=== PATIENT | male | born 1980 | race African-American/Black ===

== ENCOUNTER 2017-07-30 13:12 | Emergency (ER) | payer OTHER ==
[2017-07-30 13:37] VITALS: BP 121/71; PULSE 66; TEMP 98; BMI 27.4
--- NOTE | 2017-07-30 14:06 | PDOC ---
History of Present Illness - General Chief Complaint: Pain, Acute Stated Complaint: CHEST PAIN Time Seen by Provider: 07/30/17 13:55 History Source: Patient Exam Limitations: No Limitations - History of Present Illness Initial Comments: 07/30/17 14:31 Her with complaints of 4 days of left shoulder, upper back and neck spasm/pain. Is uncertain as to cause of issue. Denies recent exercise change, does not attend gym, denies any trauma or every heavy lifting. Uncertain as to may be slept in the wrong way. 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 Denies any heavy lifting at work or any injury. Has taken ibuprofen with minimal resolved, has had a friend massage neck with minimal resolved. Denies numbness or tingling to hands or feet, denies any chest pain or palpitations, no shortness of breath or dizziness. No fevers or cough. Smokes cigarettes, denies alcohol or drug use Timing/Duration: unsure Severity: mild, moderate Modifying Factors: improves with: medication Associated Symptoms: denies: denies symptoms Past History - Travel Traveled outside of the country in the last 30 days: No Close contact w/someone who was outside of country & ill: No - Past Medical History Allergies/Adverse Reactions: Allergies Allergy/AdvReac Type Severity Reaction Status Date / Time No Known Allergies Allergy Verified 07/30/17 13:34 Home Medications: Ambulatory Orders Cyclobenzaprine HCl [Flexeril 10 mg] 10 mg PO BID PRN #14 tablet 07/30/17 COPD: No Other medical history: eczema, nerve damage - Suicide/Smoking/Psychosocial Hx Smoking History: Current every day smoker Number of Cigarettes Smoked Daily: 10 Information on smoking cessation initiated: No Review of Systems - Review of Systems Able to Perform ROS?: Yes Is the patient limited Setswana proficient: Yes Constitutional: Yes: Symptoms Reported, See HPI, Malaise Respiratory: Yes: See HPI, Cough. No: Symptoms reported Musculoskeletal: Yes: Symptoms Reported, See HPI, Back Pain, Muscle Pain, Muscle Weakness Integumentary: Yes: Symptoms Reported, See HPI. No: Bruising All Other Systems: Reviewed and Negative *Physical Exam - Vital Signs Last Vital Signs Temp Pulse Resp BP Pulse Ox 98 F 66 18 121/71 98 07/30/17 13:34 07/30/17 13:34 07/30/17 13:34 07/30/17 13:34 07/30/17 13:34 - Physical Exam General Appearance: Yes: Appropriately Dressed, Apparent Distress HEENT: positive: PARESH, TMs Normal Neck: positive: Tender, Supple, Other (tender and tense musculature of the paravertebral spinous muscles of left side of neck extending to occiput and to insertion at upper trapezius. Range of motion is limited to left and turning movement of head. Able to abduct arm actively to approximately 45 but passive range of motion is 100% with forward flexion also passive normal. Has no crepitus or step-offs along scapular or apical. Has strong flexion and extension to upper and lower arm strong grasp to left hand. Pushing against resistance reproduces pain to his shoulder muscles.). negative: Lymphadenopathy (R), Lymphadenopathy (L) Respiratory/Chest: positive: Lungs Clear, Normal Breath Sounds. negative: Stridor, Wheezing Cardiovascular: positive: Regular Rhythm Gastrointestinal/Abdominal: positive: Normal Bowel Sounds, Soft. negative: Tender Musculoskeletal: positive: Normal Inspection, Muscle Spasm. negative: CVA Tenderness, Vertebral Tenderness Extremity: positive: Normal Capillary Refill, Normal Inspection Integumentary: positive: Normal Color. negative: Pale, Rash Neurologic: positive: field superintendent II-XII NML intact, Fully Oriented, Alert, Normal Mood/ Affect, Normal Response, Motor Strength 5/5 Medical Decision Making - Medical Decision Making 07/30/17 14:35 Cervical strain, will treat with NSAIDs and cyclobenzaprine *DC/Admit/Observation/Transfer Diagnosis at time of Disposition: Torticollis - Discharge Dispostion Disposition: HOME Condition at time of disposition: Stable Admit: No - Referrals Referrals: Marisa Gonzalez [Primary Care Provider] - - Patient Instructions Printed Discharge Instructions: DI for Torticollis Additional Instructions: Rest, no heavy lifting or exercise until pain is resolved Hot soaks to neck and low back as often as possible/hot showers or Jacuzzis No massage or therapy until spasm is gone Continue ibuprofen 2-200 mg tablets every 6 hours for the next 3 days then as needed for pain and swelling Cyclobenzaprine 1-10mg every 8 hours as needed for spasm If not significant improvement within 24 hours with medication and rest regime, followup with private physician for change in medications and /or therapy. - Post Discharge Activity Forms/Work/School Notes: Back to Work
[2017-07-30] MEDS ORDERED: KETOROLAC TROMETHAMINE 60 MG/2 ML VIAL IM ONE (14:24)
[2017-07-30] MEDS ORDERED: CYCLOBENZAPRINE HCL 10 MG TABLET (FP) PO ONE (14:24)
[2017-07-30] MEDS ORDERED: KETOROLAC TROMETHAMINE 60 MG/2 ML VIAL ONE (14:27)
[2017-07-30] MEDS ORDERED: CYCLOBENZAPRINE HCL 10 MG TABLET (FP) ONE (14:27)
--- NOTE | 2017-08-02 11:23 | EKG ---
Test Reason : Blood Pressure : / mmHG Vent. Rate : 058 BPM Atrial Rate : 058 BPM P-R Int : 162 ms QRS Dur : 098 ms QT Int : 406 ms P-R-T Axes : 045 062 048 degrees QTc Int : 398 ms SINUS BRADYCARDIA MINIMAL VOLTAGE CRITERIA FOR LVH, MAY BE NORMAL VARIANT NO PREVIOUS ECGS AVAILABLE REPEAT EKG IF CLINICALLY INDICATED Confirmed by DARRIAN MATAMOROS MD ([id number]) on 08/02/2017 11:23:18 AM Referred By: Confirmed By:DARRIAN MATAMOROS MD
== END 2017-07-30 14:52 | disposition home or self-care (01) ==
LOC: JERFT 13:12
PROC: 3E0233Z Introduction of Anti-inflammatory into Muscle, Percutaneous Approach (ICD-10-PCS; principal; 2017-07-30)
DX: M43.6 Torticollis (principal)
CPT/HCPCS: 93005; 93010; 96372; 99281-25

== ENCOUNTER 2024-04-29 16:29 | Emergency (ER) | payer OTHER ==
[2024-04-29 16:34] VITALS: BP 136/90; PULSE 88; RESP 18; TEMP 98.7; BMI 28.0
[2024-04-29] MEDS ORDERED: KETOROLAC TROMETHAMINE 30 MG/1 ML VIAL ONE (17:17)
[2024-04-29] MEDS ORDERED: FAMOTIDINE 20 MG/50 ML IVPB 20 MG/50 ML MG IVPB ONE (17:17)
[2024-04-29] MEDS ORDERED: HALOPERIDOL LACTATE 5 MG/ML ONE (17:19)
[2024-04-29] MEDS: HALOPERIDOL LACTATE 5 MG/ML IM ONE (17:22)
[2024-04-29] MEDS: FAMOTIDINE 20 MG/50 ML IVPB 20 MG/50 ML MG IVPB ONE (17:36)
[2024-04-29] MEDS: KETOROLAC TROMETHAMINE 30 MG/1 ML VIAL IVPUSH ONE (17:36)
[2024-04-29] MEDS: SODIUM CHLORIDE 0.9% 500 ML INFUS.BAG IV ONE (17:37)
[2024-04-29 17:58] LABS: ALBUMIN 3.6 g/dl (3.4-5.0); BLOOD UREA NITROGEN 4.7 mg/dL (7-18); CALCIUM 8.9 mg/dL (8.5-10.1)
[2024-04-29 18:03] LABS: BILIRUBIN,TOTAL 0.8 mg/dL (0.2-1); TOT PROT 8.4 g/dl (6.4-8.2)
[2024-04-29 18:04] LABS: BASO % 0.3 % (0-2.0); HEMATOCRIT 41.4 % (35.4-49); HEMOGLOBIN 14.4 GM/dL (11.7-16.9); LYMPH % 10.6 % (8-40); MCHC 34.7 g/dl (32.0-35.9); MEAN CELL VOLUME 80.8 fl (80-96); MEAN PLT VOLUME 9.3 fl (7.5-11.1); MONO % 13.1 % (3.8-10.2); PLATELET COUNT 249 10^3/uL (134-434); RBC 5.12 M/mm3 (4.00-5.60); RDW 13.8 % (11.9-15.9); WHITE BLOOD COUNT 4.3 K/mm3 (4.0-10.0)
== END 2024-04-29 19:04 | disposition home or self-care (01) ==
LOC: JER 16:29
PROC: 3E033GC Introduction of Other Therapeutic Substance into Peripheral Vein, Percutaneous Approach (ICD-10-PCS; principal; 2024-04-29)
PROC: 3E0333Z Introduction of Anti-inflammatory into Peripheral Vein, Percutaneous Approach (ICD-10-PCS; 2024-04-29)
PROC: 3E033GC Introduction of Other Therapeutic Substance into Peripheral Vein, Percutaneous Approach (ICD-10-PCS; 2024-04-29)
DX: M79.10 Myalgia, unspecified site (principal); R11.2 Nausea with vomiting, unspecified; G47.00 Insomnia, unspecified; R50.9 Fever, unspecified; M79.651 Pain in right thigh; G89.29 Other chronic pain; Z20.822 Contact with and (suspected) exposure to COVID-19
CPT/HCPCS: 0241U-QW; 36415; 80053; 85025; 99284-25